=== PATIENT | male | born 1935 | race African-American/Black ===

== ENCOUNTER 2018-09-07 15:08 | Observation (INO) ==
[2018-09-07 16:45] LABS: Basophils % 0.3 % (0.0-0.8); Eosinophils # 0.4 10*3/uL (0.0-0.87); Eosinophils % 5.8 % (0.00-10.9); Hematocrit 31.1 VOL% (42.0-52.0); Hemoglobin 9.8 GM/DL (14.0-18.0); Immature Granulocytes % 0.2 %; Immature Granulocytes Absolute 0.01 #; Lymphocytes # 1.6 10*3/uL (1.4-4.0); Lymphocytes % 27.2 % (21.2-54.2); Mean Corpuscular HGB Conc 31.5 GM/DL (32-36); Mean Corpuscular Hemoglobin 32 PG (27-34); Mean Corpuscular Volume 101.6 FL (87-102); Mean Platelet Volume 10.4 FL (9.6-12.0); Monocytes # 0.6 10*3/uL (0.11-0.8); Monocytes % 10.3 % (1.7-12.7); Neutrophils # 3.4 10*3/uL (1.4-7.4); Neutrophils % 56.2 % (38.7-73.9); Platelet Count 247 T/CUMM (130-400); Red Blood Count 3.06 MC/CUMM (3.8-5.5); Red Cell Distribution Width 12.7 % (9.3-17.3)
[2018-09-07 17:05] LABS: Albumin 3.6 G/DL (3.4-5.0); Bilirubin,Total 0.4 MG/DL (0.2-1.0); Calcium 8.6 MG/DL (8.5-10.1); Osmolality,Calculated 276.4 MOS/KG (273-304); Potassium 4.6 MMOL/L (3.5-5.1); Total Protein 7.5 G/DL (6.4-8.3)
[2018-09-07] MEDS ORDERED: ONDANSETRON 4 MG/2 ML VIAL IV PRN (19:43)
[2018-09-08 02:02] LABS: Calcium 7.9 MG/DL (8.5-10.1); Osmolality,Calculated 275.4 MOS/KG (273-304); Potassium 3.8 MMOL/L (3.5-5.1)
[2018-09-08 06:02] LABS: Basophils % 0.3 % (0.0-0.8); Eosinophils # 0.8 10*3/uL (0.0-0.87); Eosinophils % 13.6 % (0.00-10.9); Hematocrit 25.4 VOL% (42.0-52.0); Hemoglobin 8.4 GM/DL (14.0-18.0); Immature Granulocytes % 0.3 %; Immature Granulocytes Absolute 0.02 #; Lymphocytes # 1.9 10*3/uL (1.4-4.0); Lymphocytes % 32.4 % (21.2-54.2); Mean Corpuscular HGB Conc 33.1 GM/DL (32-36); Mean Corpuscular Hemoglobin 33 PG (27-34); Mean Corpuscular Volume 99.6 FL (87-102); Mean Platelet Volume 9.9 FL (9.6-12.0); Monocytes # 0.8 10*3/uL (0.11-0.8); Monocytes % 13.9 % (1.7-12.7); Neutrophils # 2.3 10*3/uL (1.4-7.4); Neutrophils % 39.5 % (38.7-73.9); Platelet Count 224 T/CUMM (130-400); Red Blood Count 2.55 MC/CUMM (3.8-5.5); Red Cell Distribution Width 12.5 % (9.3-17.3); White Blood Count 5.8 T/CUMM (4-12)
[2018-09-08 06:41] LABS: Anisocytosis 1+; Band Neutrophils 2 % (0-10); Eosinophils 12 % (0-10); Lymphocytes 19 % (20-55); Segmented Neutrophils 56 % (50-85); Total Cells Counted 100
[2018-09-08 06:42] LABS: Macrocytosis Slight; Platelet Estimate Normal
[2018-09-08] MEDS ORDERED: SODIUM CHLORIDE 0.9% 1,000 ML IV PRN (06:50)
[2018-09-08] MEDS ORDERED: FUROSEMIDE 20 MG/2 ML VIAL IV PRN (06:50)
[2018-09-08] MEDS ORDERED: PANTOPRAZOLE 40 MG VIAL IV SCH (09:00)
[2018-09-08] MEDS: PANTOPRAZOLE 40 MG VIAL IV SCH ×2 (09:04→20:47)
[2018-09-08] MEDS: FUROSEMIDE 20 MG/2 ML VIAL IV PRN ×2 (13:42→16:44)
[2018-09-08] MEDS: ACETAMINOPHEN 325 MG TABLET PO PRN (13:42)
[2018-09-09 05:12] LABS: Basophils % 0.5 % (0.0-0.8); Eosinophils # 0.8 10*3/uL (0.0-0.87); Eosinophils % 11.1 % (0.00-10.9); Hematocrit 36.1 VOL% (42.0-52.0); Immature Granulocytes % 0.5 %; Immature Granulocytes Absolute 0.04 #; Lymphocytes % 26.9 % (21.2-54.2); Mean Corpuscular HGB Conc 34.1 GM/DL (32-36); Mean Corpuscular Hemoglobin 32 PG (27-34); Mean Corpuscular Volume 94.8 FL (87-102); Mean Platelet Volume 9.4 FL (9.6-12.0); Monocytes # 0.8 10*3/uL (0.11-0.8); Monocytes % 10.9 % (1.7-12.7); Neutrophils # 3.8 10*3/uL (1.4-7.4); Neutrophils % 50.1 % (38.7-73.9); Platelet Count 253 T/CUMM (130-400); Red Cell Distribution Width 13.9 % (9.3-17.3); White Blood Count 7.5 T/CUMM (4-12)
[2018-09-09 05:50] LABS: Red Blood Count 3.81 MC/CUMM (3.8-5.5)
[2018-09-09 05:51] LABS: Hemoglobin 12.3 GM/DL (14.0-18.0)
[2018-09-09 06:20] LABS: Platelet Estimate Normal; Polychromasia Few
[2018-09-09] MEDS ORDERED: PROPOFOL 200 MG/20 ML VIAL IV ONE (08:26)
[2018-09-09] MEDS ORDERED: LIDOCAINE 100 MG/5 ML SYRINGE ONE (08:26)
[2018-09-09] MEDS ORDERED: PHENYLEPHRINE 1 MG/10 ML SYRINGE IV ONE (08:26)
[2018-09-09] MEDS: PANTOPRAZOLE 40 MG VIAL IV SCH ×2 (10:49→20:52)
[2018-09-09] MEDS: BISACODYL 5 MG TABLET PO SCH ×2 (10:50→16:20)
[2018-09-09] MEDS: ACETAMINOPHEN 325 MG TABLET PO PRN (10:53)
[2018-09-09] MEDS ORDERED: POLYETHYLENE GLYCOL POWDER 255 GM BOTTLE PO ONE (18:00)
[2018-09-09] MEDS ORDERED: MAGNESIUM CITRATE 300 ML BOTTLE PO ONE (21:00)
[2018-09-10] MEDS: BISACODYL 5 MG TABLET PO SCH (01:01)
[2018-09-10 04:54] LABS: Basophils % 0.4 % (0.0-0.8); Eosinophils # 0.8 10*3/uL (0.0-0.87); Eosinophils % 11.3 % (0.00-10.9); Hematocrit 34.6 VOL% (42.0-52.0); Hemoglobin 11.7 GM/DL (14.0-18.0); Immature Granulocytes % 0.1 %; Immature Granulocytes Absolute 0.01 #; Lymphocytes % 28.4 % (21.2-54.2); Mean Corpuscular HGB Conc 33.8 GM/DL (32-36); Mean Corpuscular Hemoglobin 33 PG (27-34); Mean Corpuscular Volume 96.9 FL (87-102); Mean Platelet Volume 9.9 FL (9.6-12.0); Monocytes # 0.8 10*3/uL (0.11-0.8); Monocytes % 11.2 % (1.7-12.7); Neutrophils # 3.4 10*3/uL (1.4-7.4); Neutrophils % 48.6 % (38.7-73.9); Platelet Count 275 T/CUMM (130-400); Red Blood Count 3.57 MC/CUMM (3.8-5.5); Red Cell Distribution Width 13.7 % (9.3-17.3); White Blood Count 7.1 T/CUMM (4-12)
[2018-09-10 05:18] LABS: Eosinophils 12 % (0-10); Lymphocytes 33 % (20-55); Macrocytosis Slight; Segmented Neutrophils 42 % (50-85); Total Cells Counted 100
[2018-09-10 05:19] LABS: Platelet Estimate Normal
[2018-09-10] MEDS ORDERED: LIDOCAINE 2% 5 ML VIAL ONE (09:00)
[2018-09-10] MEDS ORDERED: PHENYLEPHRINE 1 MG/10 ML SYRINGE IV ONE (09:00)
[2018-09-10] MEDS ORDERED: PROPOFOL 200 MG/20 ML VIAL IV ONE (09:00)
[2018-09-10] MEDS: PANTOPRAZOLE 40 MG VIAL IV SCH (11:02)
[2018-09-10 14:13] VITALS: BP 140/66
== END 2018-09-10 13:11 | disposition home or self-care (01) ==
LOC: N.EDINP 15:08 → N.ED 15:08 → SUATTDRO 19:43 → SUPCPDRO 19:43 → N.4E 22:20
PROVIDERS: ADMIT Internal Medicine; ATTEND Hospitalist

== ENCOUNTER 2022-06-16 14:59 | Observation (INO) ==
[2022-06-16] MEDS ORDERED: SODIUM CHLORIDE 0.9% 1,000 ML IV STA (15:20)
[2022-06-16 15:54] LABS: Basophils % 0.2 % (0.0-0.8); Eosinophils # 0.1 10*3/uL (0.0-0.87); Eosinophils % 0.6 % (0.00-10.9); Hemoglobin 11.7 GM/DL (14.0-18.0); Immature Granulocytes % 0.4 %; Immature Granulocytes Absolute 0.03 #; Lymphocytes % 11.9 % (21.2-54.2); Mean Corpuscular HGB Conc 32.5 GM/DL (32-36); Mean Corpuscular Volume 100.3 FL (87-102); Mean Platelet Volume 9.3 FL (9.6-12.0); Monocytes # 0.5 10*3/uL (0.11-0.8); Monocytes % 5.9 % (1.7-12.7); Platelet Count 219 T/CUMM (130-400); Red Blood Count 3.59 MC/CUMM (3.8-5.5); Red Cell Distribution Width 13.6 % (9.3-17.3); White Blood Count 8.2 T/CUMM (4-12)
[2022-06-16 16:12] LABS: Albumin 3.1 G/DL (3.4-5.0); Bilirubin,Total 0.5 MG/DL (0.20-1.00); Calcium 8.4 MG/DL (8.5-10.1); Osmolality,Calculated 279.3 MOS/KG (273-304); Potassium 4.8 MMOL/L (3.5-5.1); Total Protein 6.1 G/DL (6.4-8.2)
[2022-06-16 16:15] LABS: PT Patient Result 11.5 SECS (10.1-12.1); Partial Thromboplastin Time 27.6 SECS (23.7-32.9)
[2022-06-16] MEDS ORDERED: SIMETHICONE CHEW 125 MG TABLET PO PRN (16:53)
[2022-06-16] MEDS ORDERED: ALUMINUM/MAGNES/SIMETH MAX STR 30 ML UDCUP PO PRN (16:53)
[2022-06-16] MEDS ORDERED: ONDANSETRON 4 MG/2 ML VIAL IV PRN (16:53)
[2022-06-16] MEDS ORDERED: ACETAMINOPHEN 325 MG TABLET PO PRN (16:53)
[2022-06-16] MEDS ORDERED: ALBUTEROL 2.5 MG/3 ML NEB RESP TX PRN (16:53)
[2022-06-16] MEDS: LACTATED RINGERS 1,000 ML IV SCH (17:08)
[2022-06-16 17:54] LABS: Folate 13.85 NG/ML (5.38-24.0)
[2022-06-16 17:57] LABS: % Iron Saturation 11.7 % (18-50)
[2022-06-16 18:45] LABS: Hematocrit 39.6 VOL% (42.0-52.0); Hemoglobin 13.2 GM/DL (14.0-18.0)
[2022-06-16] MEDS: TAMSULOSIN 0.4 MG CAPSULE PO SCH (21:01)
[2022-06-16] MEDS: PANTOPRAZOLE 40 MG VIAL IV SCH (21:03)
[2022-06-16 22:16] LABS: Bilirubin,Urine Negative (Negative); Blood, Urine Negative (Negative); Glucose,Urine (UA) Negative (Negative); Ketones,Urine Negative (Negative); Nitrite,Urine Negative (Negative); Protein,Urine Negative (Negative); RBC,Urine 2 /HPF (0-4); Urine Appearance CLEAR (Clear); Urine Color Straw (Yellow); Urine Specific Gravity 1.028 (1.001-1.035); Urine Urobilinogen < 2.0 eU/dL (<2.0)
[2022-06-17 00:41] LABS: Hematocrit 32.6 VOL% (42.0-52.0); Hemoglobin 10.7 GM/DL (14.0-18.0)
[2022-06-17 05:12] LABS: Basophils % 0.5 % (0.0-0.8); Eosinophils # 0.2 10*3/uL (0.0-0.87); Eosinophils % 4.6 % (0.00-10.9); Hematocrit 29.2 VOL% (42.0-52.0); Hemoglobin 9.8 GM/DL (14.0-18.0); Immature Granulocytes % 0.3 %; Immature Granulocytes Absolute 0.01 #; Lymphocytes # 1.3 10*3/uL (1.4-4.0); Lymphocytes % 32.7 % (21.2-54.2); Mean Corpuscular HGB Conc 33.6 GM/DL (32-36); Mean Corpuscular Volume 98.6 FL (87-102); Mean Platelet Volume 9.7 FL (9.6-12.0); Monocytes # 0.5 10*3/uL (0.11-0.8); Monocytes % 12.4 % (1.7-12.7); Neutrophils % 49.5 % (38.7-73.9); Platelet Count 186 T/CUMM (130-400); Red Blood Count 2.96 MC/CUMM (3.8-5.5); Red Cell Distribution Width 13.7 % (9.3-17.3); White Blood Count 3.9 T/CUMM (4-12)
[2022-06-17 05:13] LABS: Hematocrit 29.8 VOL% (42.0-52.0); Hemoglobin 9.9 GM/DL (14.0-18.0)
[2022-06-17 05:51] LABS: Calcium 7.9 MG/DL (8.5-10.1); Thyroid Stimulating Hormone 0.782 uIU/ml (0.358-3.74)
[2022-06-17 10:58] LABS: Hematocrit 29.4 VOL% (42.0-52.0); Hemoglobin 9.8 GM/DL (14.0-18.0)
[2022-06-17] MEDS ORDERED: MAGNESIUM SULF RIDER 2 GM/50 ML PREMIX IV ONE (11:00)
[2022-06-17] MEDS: CYANOCOBALAMIN 500 MCG TABLET PO SCH (11:05)
[2022-06-17] MEDS: PANTOPRAZOLE 40 MG VIAL IV SCH ×2 (11:06→20:28)
[2022-06-17] MEDS: LACTATED RINGERS 1,000 ML IV SCH (11:06)
[2022-06-17] MEDS: POLYETHYLENE GLYCOL POWDER 17 GM PACK PO SCH ×2 (16:12→20:28)
[2022-06-17 17:06] LABS: Hematocrit 29.2 VOL% (42.0-52.0); Hemoglobin 9.7 GM/DL (14.0-18.0)
[2022-06-17] MEDS: TAMSULOSIN 0.4 MG CAPSULE PO SCH (20:28)
[2022-06-17] MEDS ORDERED: MIRTAZAPINE 15 MG TABLET PO SCH (21:00)
[2022-06-17 23:10] LABS: Hematocrit 29.9 VOL% (42.0-52.0); Hemoglobin 9.9 GM/DL (14.0-18.0)
[2022-06-18] MEDS: LACTATED RINGERS 1,000 ML IV SCH ×2 (02:04→09:08)
[2022-06-18 05:27] LABS: Basophils % 0.1 % (0.0-0.8); Eosinophils % 0.4 % (0.00-10.9); Hematocrit 29.9 VOL% (42.0-52.0); Immature Granulocytes % 0.4 %; Immature Granulocytes Absolute 0.03 #; Lymphocytes # 0.3 10*3/uL (1.4-4.0); Mean Corpuscular HGB Conc 33.4 GM/DL (32-36); Mean Corpuscular Volume 98.4 FL (87-102); Mean Platelet Volume 9.9 FL (9.6-12.0); Monocytes # 0.3 10*3/uL (0.11-0.8); Monocytes % 3.7 % (1.7-12.7); Neutrophils % 91.4 % (38.7-73.9); Platelet Count 185 T/CUMM (130-400); Red Blood Count 3.04 MC/CUMM (3.8-5.5); Red Cell Distribution Width 13.5 % (9.3-17.3); White Blood Count 8.2 T/CUMM (4-12)
[2022-06-18 05:43] LABS: Calcium 8.5 MG/DL (8.5-10.1); Osmolality,Calculated 280.3 MOS/KG (273-304); Potassium 3.8 MMOL/L (3.5-5.1)
[2022-06-18 05:58] LABS: Hypochromia Slight; Lymphocytes 2 % (20-55); Microcytosis Slight; Platelet Estimate Adequate; Total Cells Counted 100
[2022-06-18] MEDS ORDERED: MAGNESIUM SULF RIDER 2 GM/50 ML PREMIX IV ONE (09:00)
[2022-06-18] MEDS: CYANOCOBALAMIN 500 MCG TABLET PO SCH (09:04)
[2022-06-18] MEDS: PANTOPRAZOLE 40 MG VIAL IV SCH (09:04)
[2022-06-18] MEDS: POLYETHYLENE GLYCOL POWDER 17 GM PACK PO SCH (09:05)
[2022-06-18 11:09] LABS: Hematocrit 29.4 VOL% (42.0-52.0); Hemoglobin 9.8 GM/DL (14.0-18.0)
[2022-06-18 11:58] VITALS: BP 115/50
== END 2022-06-18 14:20 | disposition home health service (06) ==
LOC: N.EDINP 14:59 → N.ED 14:59 → SUATTDRO 16:52 → N.5E 17:34 → SUATTDRO 06-17 08:12
PROVIDERS: ADMIT Family Medicine; ATTEND Family Medicine